=== PATIENT | female | born 1990 | race Caucasian/White ===

== ENCOUNTER 2017-10-04 17:53 | Emergency (ER) | payer OTHER ==
[2017-10-04 18:00] VITALS: BP 109/51; PULSE 76; TEMP 97.9; BMI 32.9
--- NOTE | 2017-10-04 18:00 | PDOC ---
Rapid Medical Evaluation Time Seen by Provider: 10/04/17 17:54 Medical Evaluation: Allergies Allergy/AdvReac Type Severity Reaction Status Date / Time No Known Allergies Allergy Verified 10/04/17 17:54 12 17:54 I have performed a brief in-person evaluation of this patient. The patient presents with a chief complaint of: 31 weeks w/ R pelvic pain radiating to leg x 3 days. No vag bleed, dysuria, n/v/f/c. Continues to have movement Pertinent physical exam findings:Stable I have ordered the following: Nothing The patient will proceed to L&D for further evaluation. 10/04/17 18:00
== END 2017-10-04 20:25 | disposition home or self-care (01) ==
LOC: JER 17:53
DX: O26.893 Other specified pregnancy related conditions, third trimester (principal); Z3A.31 31 weeks gestation of pregnancy
CPT/HCPCS: 93971-TC; 99281-25

== ENCOUNTER 2017-12-01 15:47 | Inpatient (IN) | payer OTHER ==
[2017-12-01 17:02] VITALS: BMI 34.9
[2017-12-01 17:52] LABS: BASO % 0.3 % (0-2.0); EOS % 0.5 % (0-4.5); HEMATOCRIT 33.3 % (32.4-45.2); MCH 29.3 pg (25.7-33.7); MCHC 33.1 g/dl (32.0-36.0); MEAN CELL VOLUME 88.5 fl (80-96); MEAN PLT VOLUME 9.3 fl (7.5-11.1); MONO % 6.3 % (3.8-10.2); NEUT % 72.9 % (42.8-82.8); PLATELET COUNT 234 K/MM3 (134-434); RBC 3.76 M/mm3 (3.60-5.2); WHITE BLOOD COUNT 5.5 K/mm3 (4.0-10.0)
[2017-12-01] MEDS ORDERED: PROMETHAZINE HCL 25 MG/1 ML VIAL IVPUSH ONE (18:00)
[2017-12-01] MEDS ORDERED: BUTORPHANOL TARTRATE 1 MG/ML VIAL IVPUSH ONE (18:00)
[2017-12-01] MEDS ORDERED: DINOPROSTONE 10 MG VAGINAL SUPPOSITORY VG ONE (18:00)
--- NOTE | 2017-12-01 18:04 | HP ---
Past Medical History - Primary Care Physician PCP:: Antwon Galvez - Admission Chief Complaint: 40 weeks , GDM, LGA for cervidil induction History of Present Illness: 27 yo f ,40 weeks with hx of GDM, lga admitted for cervidil induction, cx 3 2 cm 50 vx -2 mi, fhr cat 1, irregular contraction, cervidil explained rba discussed History Source: Patient Limitations to Obtaining History: Language Barrier - Past Medical History ...: 4 ...Para: 1 ...Term: 1 ...: 0 ...Spon : 1 ...Induced : 1 ...Multiple Gestation: 0 ...LMP: 03/01/17 ... Weeks Gestation by Dates: 39.1 ...EDC by Dates: 12/06/17 ...EDC by Sono: 12/01/17 - Past Surgical History Hx Myomectomy: No Hx Transabdominal Cerclage: No - Smoking History Smoking history: Never smoked Have you smoked in the past 12 months: No - Alcohol/Substance Use Hx Alcohol Use: No - Social History Usual Living Arrangement: Yes: With Spouse History of Recent Travel: No Home Medications - Allergies Allergies/Adverse Reactions: Allergies Allergy/AdvReac Type Severity Reaction Status Date / Time No Known Allergies Allergy Verified 12/01/17 16:22 - Home Medications Home Medications: Ambulatory Orders Ferrous Sulfate [Feosol] 325 mg PO BID 12/01/17 Vit 108/Iron/Folic AC [ One Tablet] 1 each PO DAILY 12/01/17 Review of Systems - Review of Systems Constitutional: reports: No Symptoms Eyes: reports: No Symptoms HENT: reports: No Symptoms Neck: reports: No Symptoms Cardiovascular: reports: No Symptoms Respiratory: reports: No Symptoms Gastrointestinal: reports: No Symptoms Genitourinary: reports: No Symptoms Breasts: reports: No Symptoms Reported Musculoskeletal: reports: No Symptoms Integumentary: reports: No Symptoms Neurological: reports: No Symptoms Endocrine: reports: No Symptoms Hematology/Lymphatic: reports: No Symptoms Psychiatric: reports: No Symptoms Physical Exam - Maternity Vital Signs: Vital Signs Temperature 98.2 F 12/01/17 16:00 Pulse Rate 84 12/01/17 16:00 Respiratory Rate 20 12/01/17 16:00 Blood Pressure 110/62 12/01/17 16:00 O2 Sat by Pulse Oximetry (%) - Abdominal Exam/OB Fundal Height: 140 Number of Fetuses: Single Presentation: Vertex Contractions: Yes Regularity: Irregular Intensity: Unaware Monitor Mode: External Heart Rate Location: RLQ Accelerations: Uniform Decelerations: None - Vaginal Exam/OB Vaginal Bleediing: No Speculum Exam: No Dilatation (cm): 2 cm Effacement (%): 50 Amniotic Membrane Status: Intact Presentation: Vertex/Position Station: -2 - Physical Exam Edema: Yes Edema: LLE: Trace, RLE: Trace ...Motor Strength: WNL Psychiatric: Yes: WNL Hemorrhage Risk Assessment - Risk Factors Medium Risk Factors: Yes: None High Risk Factors: Yes: None Risk Score: 1 Risk Level: Medium Risk Problem List - Problems (1) 40 weeks gestation of Code(s): Z3A.40 - 40 WEEKS GESTATION OF (2) Gestational diabetes Code(s): O24.419 - GESTATIONAL DIABETES MELLITUS IN , UNSP CONTROL Qualifiers: Gestational diabetes mellitus control: diet-controlled (3) Gestational diabetes Code(s): O24.419 - GESTATIONAL DIABETES MELLITUS IN , UNSP CONTROL (4) Large for gestational age fetus Code(s): [id number] - Assessment/Plan plan admit for cervidil induction, rbchucho discussed FHM,
--- NOTE | 2017-12-01 18:12 | PN ---
Progress Note (short form) - Note Progress Note: fhr cat 1, cervidil inserted 6 pm Problem List - Problems (1) 40 weeks gestation of Code(s): Z3A.40 - 40 WEEKS GESTATION OF (2) Gestational diabetes Code(s): O24.419 - GESTATIONAL DIABETES MELLITUS IN , UNSP CONTROL Qualifiers: Gestational diabetes mellitus control: diet-controlled (3) Gestational diabetes Code(s): O24.419 - GESTATIONAL DIABETES MELLITUS IN , UNSP CONTROL (4) Large for gestational age fetus Code(s): [id number] -
[2017-12-01 18:16] LABS: ANION GAP 8 (8-16); BLOOD UREA NITROGEN 5 mg/dL (7-18); CALCIUM 7.9 mg/dL (8.5-10.1); CHLORIDE 107 mmol/L (98-107); CO2 23 mmol/L (21-32); CREATININE 0.5 mg/dL (0.55-1.02); GLUCOSE,RANDOM 110 mg/dL (74-106); POTASSIUM 3.9 mmol/L (3.5-5.1); SODIUM 138 mmol/L (136-145)
[2017-12-01 18:25] LABS: INR 0.96 (0.82-1.09); PROTHROMBIN TIME (PATIENT) 10.9 SEC (9.98-11.88)
[2017-12-01 18:28] LABS: ACTIVATED PTT 32.3 SECONDS (26.9-34.4)
[2017-12-01] MEDS ORDERED: LACTATED RINGERS SOLUTION 1,000 ML/1,000 ML INFUS.BAG IV ONE ×2 (19:51→23:00)
[2017-12-01] MEDS ORDERED: ELECTROLYTE-148 SOLN 1,000 ML IV ONE (19:54)
[2017-12-01] MEDS ORDERED: BUTORPHANOL TARTRATE 1 MG/ML VIAL ONE ×2 (20:30)
--- NOTE | 2017-12-01 20:30 | PN ---
Progress Note (short form) - Note Progress Note: short frequent contraction , cx 2 cm 70 vx -2 , cervidil lowered in the vagina , wants pain meds Problem List - Problems (1) 40 weeks gestation of Code(s): Z3A.40 - 40 WEEKS GESTATION OF (2) Gestational diabetes Code(s): O24.419 - GESTATIONAL DIABETES MELLITUS IN , UNSP CONTROL Qualifiers: Gestational diabetes mellitus control: diet-controlled (3) Gestational diabetes Code(s): O24.419 - GESTATIONAL DIABETES MELLITUS IN , UNSP CONTROL (4) Large for gestational age fetus Code(s): ESR9932 -
[2017-12-01] MEDS ORDERED: PROMETHAZINE HCL 25 MG/1 ML VIAL ONE (20:31)
--- NOTE | 2017-12-01 21:48 | PN ---
Progress Note (short form) - Note Progress Note: cx 4 cm 70 vx -2 mi, fhr cat 1. regular short contraction Problem List - Problems (1) 40 weeks gestation of Code(s): Z3A.40 - 40 WEEKS GESTATION OF (2) Gestational diabetes Code(s): O24.419 - GESTATIONAL DIABETES MELLITUS IN , UNSP CONTROL Qualifiers: Gestational diabetes mellitus control: diet-controlled (3) Gestational diabetes Code(s): O24.419 - GESTATIONAL DIABETES MELLITUS IN , UNSP CONTROL (4) Large for gestational age fetus Code(s): [id number] -
[2017-12-02] MEDS ORDERED: PROMETHAZINE HCL 25 MG/1 ML VIAL IVPUSH ONE (01:35)
[2017-12-02] MEDS ORDERED: BUTORPHANOL TARTRATE 1 MG/ML VIAL IVPUSH ONE (01:35)
[2017-12-02] MEDS ORDERED: BUTORPHANOL TARTRATE 1 MG/ML VIAL ONE ×2 (01:45)
[2017-12-02] MEDS ORDERED: PROMETHAZINE HCL 25 MG/1 ML VIAL ONE (01:45)
[2017-12-02] MEDS ORDERED: OXYTOCIN 20 UNITS in 0.9% NS 20 UNIT/1,000 ML INFUS.BAG IV ONE ×2 (03:08→05:33)
[2017-12-02] MEDS ORDERED: oxyCODONE HCL 5 MG TABLET PO PRN (04:50)
[2017-12-02] MEDS ORDERED: WITCH HAZEL 50% (TUCKS) 40 PAD/JAR PAD TP PRN (04:50)
[2017-12-02] MEDS ORDERED: METHYLERGONOVINE MALEATE 0.2 MG/1 ML AMP IM PRN (04:50)
[2017-12-02] MEDS ORDERED: BISACODYL 10 MG SUPP.RECT RC PRN (04:50)
[2017-12-02] MEDS ORDERED: BENZOCAINE 28 GM HEMORRHOIDAL OINTMENT TP PRN (04:50)
[2017-12-02] MEDS ORDERED: BENZOCAINE 20% 57 GM BOTTLE TP PRN (04:50)
[2017-12-02] MEDS ORDERED: D5W-LR W/ 20 UNITS OXYTOCIN 20 UNIT/1,000 ML INFUS.BAG IV SCH (05:00)
[2017-12-02 05:06] LABS: ARTERIAL BLOOD GAS BASE EXCESS -5.3 meq/l (-2-2)
[2017-12-02 05:11] LABS: VENOUS PC02 39.6 mmHg (38-52); VENOUS PH 7.34 (7.32-7.42); VENOUS PO2 36.5 mmHg (28-48)
[2017-12-02 05:12] LABS: ARTERIAL BLOOD GAS pH 7.22 (7.35-7.45)
[2017-12-02 05:13] LABS: ARTERIAL BLD GAS O2 SATURATION 25.1 % (90-98.9)
[2017-12-02] MEDS: FERROUS SO4 325 MG TABLET (FP) PO SCH ×2 (08:20→17:06)
[2017-12-02] MEDS: PRENATAL VITAMINS W/ FOLIC ACID TABLET (FP) PO SCH (10:00)
[2017-12-02] MEDS: IBUPROFEN 600 MG TABLET (FP) PO PRN ×2 (12:27→19:13)
[2017-12-02] MEDS: ACETAMINOPHEN 325 MG TABLET (FP) PO PRN ×2 (12:28→19:14)
[2017-12-03] MEDS: ACETAMINOPHEN 325 MG TABLET (FP) PO PRN ×3 (02:46→17:45)
[2017-12-03] MEDS: IBUPROFEN 600 MG TABLET (FP) PO PRN ×3 (02:47→17:46)
[2017-12-03 06:07] LABS: HBsAG SCREEN Negative (Negative)
[2017-12-03 06:41] LABS: BASO % 0.5 % (0-2.0); EOS % 0.5 % (0-4.5); HEMATOCRIT 28.9 % (32.4-45.2); HEMOGLOBIN 9.5 GM/dL (10.7-15.3); LYMPH % 28.8 % (8-40); MCH 29.2 pg (25.7-33.7); MCHC 32.8 g/dl (32.0-36.0); MONO % 5.7 % (3.8-10.2); NEUT % 64.5 % (42.8-82.8); PLATELET COUNT 236 K/MM3 (134-434); RBC 3.25 M/mm3 (3.60-5.2); RDW 16.4 % (11.6-15.6); WHITE BLOOD COUNT 7.4 K/mm3 (4.0-10.0)
--- NOTE | 2017-12-03 07:12 | PN ---
Post Progress Note Post Day: 1 Type of Delivery: Vital Signs: Vital Signs Temperature 98.3 F 12/02/17 22:00 Pulse Rate 83 12/02/17 22:00 Respiratory Rate 18 12/02/17 22:00 Blood Pressure 115/78 12/02/17 22:00 O2 Sat by Pulse Oximetry (%) Breast Exam: Yes: Soft Uterus: Yes: Fundus Firm Abdomen/GI: Yes: Abdomen soft Lochia: Yes: Rubra Lochia, amount: Small Extremities: Yes: Calves non-tender Perineum: Yes: Intact Activity: Ambulating - Labs Labs: CBC WBC 7.4 K/mm3 (4.0-10.0) D 12/03/17 06:25 RBC 3.25 M/mm3 (3.60-5.2) L 12/03/17 06:25 Hgb 9.5 GM/dL (10.7-15.3) L D 12/03/17 06:25 Hct 28.9 % (32.4-45.2) L 12/03/17 06:25 MCV 89.0 fl (80-96) 12/03/17 06:25 MCH 29.2 pg (25.7-33.7) 12/03/17 06:25 MCHC 32.8 g/dl (32.0-36.0) 12/03/17 06:25 RDW 16.4 % (11.6-15.6) H 12/03/17 06:25 Plt Count 236 K/MM3 (134-434) 12/03/17 06:25 MPV 9.0 fl (7.5-11.1) 12/03/17 06:25 Neutrophils % 64.5 % (42.8-82.8) 12/03/17 06:25 Lymphocytes % 28.8 % (8-40) D 12/03/17 06:25 Monocytes % 5.7 % (3.8-10.2) 12/03/17 06:25 Eosinophils % 0.5 % (0-4.5) 12/03/17 06:25 Basophils % 0.5 % (0-2.0) 12/03/17 06:25 Assessment/Plan oob reg diet continue care
[2017-12-03] MEDS: FERROUS SO4 325 MG TABLET (FP) PO SCH ×2 (08:11→17:43)
[2017-12-03] MEDS: PRENATAL VITAMINS W/ FOLIC ACID TABLET (FP) PO SCH (09:15)
[2017-12-03] MEDS ORDERED: SENNOSIDES/DOCUSATE COMBO (SENNA PLUS) TABLET (UD) PO PRN (22:00)
[2017-12-04] MEDS: IBUPROFEN 600 MG TABLET (FP) PO PRN ×2 (00:12→07:46)
[2017-12-04] MEDS: ACETAMINOPHEN 325 MG TABLET (FP) PO PRN ×2 (00:13→07:46)
[2017-12-04] MEDS: FERROUS SO4 325 MG TABLET (FP) PO SCH (07:46)
[2017-12-04 08:20] VITALS: BP 110/57; PULSE 67; TEMP 97.8
--- NOTE | 2017-12-04 08:53 | PN ---
Post Progress Note - Subjective Subjective: Pt feeling well. Ambulating. Voiding. Normal lochia. Bottle feeding. Desires BTL for contraception Post Day: 2 Type of Delivery: Vital Signs: Vital Signs Temperature 97.8 F 12/04/17 08:19 Pulse Rate 67 12/04/17 08:19 Respiratory Rate 20 12/04/17 08:19 Blood Pressure 110/57 12/04/17 08:19 O2 Sat by Pulse Oximetry (%) Breast Exam: Yes: Soft Uterus: Yes: Fundus Firm Abdomen/GI: Yes: Abdomen soft Lochia, amount: Small Extremities: Yes: Calves non-tender Activity: Ambulating - Labs Labs: CBC WBC 7.4 K/mm3 (4.0-10.0) D 12/03/17 06:25 RBC 3.25 M/mm3 (3.60-5.2) L 12/03/17 06:25 Hgb 9.5 GM/dL (10.7-15.3) L D 12/03/17 06:25 Hct 28.9 % (32.4-45.2) L 12/03/17 06:25 MCV 89.0 fl (80-96) 12/03/17 06:25 MCH 29.2 pg (25.7-33.7) 12/03/17 06:25 MCHC 32.8 g/dl (32.0-36.0) 12/03/17 06:25 RDW 16.4 % (11.6-15.6) H 12/03/17 06:25 Plt Count 236 K/MM3 (134-434) 12/03/17 06:25 MPV 9.0 fl (7.5-11.1) 12/03/17 06:25 Neutrophils % 64.5 % (42.8-82.8) 12/03/17 06:25 Lymphocytes % 28.8 % (8-40) D 12/03/17 06:25 Monocytes % 5.7 % (3.8-10.2) 12/03/17 06:25 Eosinophils % 0.5 % (0-4.5) 12/03/17 06:25 Basophils % 0.5 % (0-2.0) 12/03/17 06:25 Problem List - Problems (1) care following vaginal delivery Code(s): Z39.2 - ENCOUNTER FOR ROUTINE FOLLOW-UP Assessment/Plan Patient PPD#2 s/p stable for discharge home problem list states DVT; spoke to pt, no h/o DVT, no h/o anticoagulation. pelvic rest x 6 weeks desires btl; to f/u to schedule Dr. Magdaleno
--- NOTE | 2017-12-04 09:00 | DS ---
Physical Exam-[employer] Vital Signs: Vital Signs Temperature 97.8 F 12/04/17 08:19 Pulse Rate 67 12/04/17 08:19 Respiratory Rate 20 12/04/17 08:19 Blood Pressure 110/57 12/04/17 08:19 O2 Sat by Pulse Oximetry (%) Constitutional: Yes: Well Nourished, No Distress, Calm Eyes: Yes: WNL, Conjunctiva Clear, EOM Intact HENT: Yes: WNL, Atraumatic, Normocephalic Neck: Yes: WNL, Supple, Trachea Midline Cardiovascular: Yes: WNL, Regular Rate and Rhythm Respiratory: Yes: WNL, Regular, CTA Bilaterally Gastrointestinal: Yes: WNL ...Rectal Exam: Yes: WNL Renal/: Yes: WNL Breast(s): Yes: WNL Musculoskeletal: Yes: WNL Extremities: Yes: WNL Integumentary: Yes: WNL Neurological: Yes: WNL, Alert, Oriented ...Motor Strength: WNL Psychiatric: Yes: WNL, Alert, Oriented Labs: CBC, BMP 12/03/17 06:25 12/01/17 16:45 Delivery - Delivery Type of Anesthesia: Local Episiotomy/Laceration: Midline EBL (cc): 400 Delivery, Single - Stages of Labor Date 1st Stage Initiatied: 12/01/17 Time 1st Stage Initiated: 21:40 Date 2nd Stage Initiated: 12/02/17 Time 2nd Stage Initiated: 04:10 Date of Delivery: 12/02/17 Time of Delivery: 04:26 Time Placenta Delivered: 04:35 - 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 of 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 Present: No Infant Gender: Female Weight: 9 lb 2 oz Position: Left, OA Total Hours ROM (Hrs/Mins): 25min - 1 Minute Total Score: 8 5 Minutes Total Score: 9 - [place] Feeding Plan Initial Plan: Elected not to breastfeed exclusively throughout hospitalization Discharge Summary Reason For Visit: CERVIDIL INDUCTION Current Active Problems 40 weeks gestation of (Acute) Gestational diabetes (Acute) Gestational diabetes (Acute) Large for gestational age fetus (Acute) care following vaginal delivery (Acute) Procedures: Principal: spontaneous vaginal delivery Condition: Good - Instructions Diet, Activity, Other Instructions: return to clinic in 4-6 weeks. call [facility] for appointment. [phone] Physical activity Resume your normal everyday activity as tolerated no heavy lifting or exercise until seen by your surgeon. You may walk unlimited charline of and climb stairs. You may resume driving the car when you feel safe and comfortable behind the wheel. No sexual activity as instructed. Wound care If you have a bandage, leave it on, and keep dry for 48-72 hours. After that time discard the outer bandage. If they are tapes on the skin under the out of bandage leave them in place. They will peel off in the next 7 to 10 days. Do Not Peel them off. You may shower the day after surgery. If there are tapes present on the skin, you may shower over them. Diet There are no dietary restrictions. Eat healthy, high-fiber foods. Drink 6 to 8 glasses of liquid each day. This will assist in keeping your bowels are regular. Pain management You may take Tylenol or acetaminophen or Ibuprofen (for example, Motrin, Advil etc.) from my pain prescription medication is ordered should be taken as prescribed for moderate to severe pain. Call MD for any of the following: Severe pain not relieved by medication Fever of 101 or higher Excessive bleeding or drainage on dressing Inability to urinate Disposition: HOME - Home Medications Comprehensive Discharge Medication List: Ambulatory Orders Ferrous Sulfate [Feosol] 325 mg PO BID 12/01/17 Vit 108/Iron/Folic AC [ One Tablet] 1 each PO DAILY 12/01/17
[2017-12-04] MEDS: PRENATAL VITAMINS W/ FOLIC ACID TABLET (FP) PO SCH (09:31)
== END 2017-12-04 12:15 | disposition home or self-care (01) | DRG 560 ==
LOC: JLDR 15:47 → J3W 12-02 06:15
PROVIDERS: ADMIT Obstetrics & Gynecology; ATTEND Obstetrics & Gynecology
PROC: 3E0P7VZ Introduction of Hormone into Female Reproductive, Via Natural or Artificial Opening (ICD-10-PCS; 2017-12-01)
PROC: 10E0XZZ Delivery of Products of Conception, External Approach (ICD-10-PCS; principal; 2017-12-02)
PROC: 0W8NXZZ Division of Female Perineum, External Approach (ICD-10-PCS; 2017-12-02)
DX: O36.63X0 Maternal care for excessive fetal growth, third trimester, not applicable or unspecified (principal); O24.429 Gestational diabetes mellitus in childbirth, unspecified control; Z3A.40 40 weeks gestation of pregnancy; Z37.0 Single live birth
CPT/HCPCS: 36415; 36600; 59409; 80048; 82803; 82962; 85025; 85610; 85730; 86593; 86850; 86900; 86901; 87340

== ENCOUNTER 2023-07-12 06:25 | Inpatient (IN) | payer OTHER ==
[2023-07-12 06:51] VITALS: BMI 34.4
[2023-07-12] MEDS ORDERED: CITRIC ACID/SODIUM CITRATE 30 ML UNIT-DOSE CUP PO ONE (07:00)
[2023-07-12] MEDS ORDERED: ELECTROLYTE-148 SOLN 1,000 ML IV SCH (07:00)
[2023-07-12] MEDS ORDERED: ELECTROLYTE-148 SOLN 500 ML IV SCH (07:00)
[2023-07-12] MEDS ORDERED: OXYTOCIN 30 UNITS in 0.9% NS 30 UNIT/500 ML INFUS.BAG IVPB ONE (07:53)
[2023-07-12] MEDS ORDERED: ONDANSETRON 4 MG/2 ML VIAL ONE (07:54)
[2023-07-12] MEDS ORDERED: ceFAZolin SODIUM 1 GM VIAL ONE (07:54)
[2023-07-12] MEDS ORDERED: METOCLOPRAMIDE HCL INJECTION 10 MG/2 ML VIAL ONE (07:54)
[2023-07-12] MEDS ORDERED: DEXAMETHASONE SOD PHOSPHATE 4 MG/1 ML VIAL ONE (07:54)
[2023-07-12] MEDS ORDERED: PHENYLEPHRINE HCL 10 MG/1 ML SINGLE DOSE VIAL ONE (07:54)
[2023-07-12] MEDS ORDERED: morphine SULFATE/PF 1 MG/2 ML (2cc Syringe - QUVA) ONE (07:54)
[2023-07-12] MEDS ORDERED: FENTANYL CITRATE/PF 50 MCG/ML VIAL ONE (07:54)
[2023-07-12] MEDS ORDERED: morphine SULFATE/PF 1 MG/2 ML (2cc Syringe - QUVA) IT ONE (08:31)
[2023-07-12] MEDS ORDERED: METHYLERGONOVINE MALEATE 0.2 MG/1 ML AMP IM ONE (08:50)
[2023-07-12] MEDS ORDERED: KETOROLAC TROMETHAMINE 30 MG/1 ML VIAL ONE (09:05)
[2023-07-12] MEDS ORDERED: METHYLERGONOVINE MALEATE 0.2 MG/1 ML AMP IM PRN (09:24)
[2023-07-12] MEDS ORDERED: IBUPROFEN 800 MG/8 ML IJ IVPB PRN (09:26)
[2023-07-12] MEDS ORDERED: CEFAZOLIN SODIUM 2 GM in DEXTROSE 5%-WATER 100 ML IVPB SCH (09:30)
[2023-07-12] MEDS ORDERED: OXYTOCIN 20 UNITS in 0.9% NS 20 UNIT/1,000 ML INFUS.BAG IV SCH (09:30)
[2023-07-12 09:38] LABS: CORD BASE EXCESS -5.2 mmol/L (0-2); CORD HCO3 20.6 mmHg (20-29); CORD PCO2 41.2 mmHg (30-78); CORD pH 7.317 (7.14-7.44)
[2023-07-12] MEDS ORDERED: ONDANSETRON 4 MG/2 ML VIAL IVPUSH PRN (09:39)
[2023-07-12 09:41] LABS: CORD HCO3 21.6 mmHg (20-29); CORD PCO2 55.5 mmHg (30-78); CORD pH 7.209 (7.14-7.44)
[2023-07-12] MEDS ORDERED: OXYTOCIN 20 UNITS in 0.9% NS 20 UNIT/1,000 ML INFUS.BAG IV ONE (10:25)
[2023-07-12] MEDS: CEFAZOLIN SODIUM 2 GM in DEXTROSE 5%-WATER 100 ML IVPB SCH (17:07)
[2023-07-12] MEDS ORDERED: oxyCODONE HCL 5 MG TABLET PO PRN (21:25)
[2023-07-13] MEDS: CEFAZOLIN SODIUM 2 GM in DEXTROSE 5%-WATER 100 ML IVPB SCH ×2 (00:32→09:14)
[2023-07-13] MEDS: IBUPROFEN 600 MG TABLET (FP) PO PRN ×2 (05:54→20:11)
[2023-07-13] MEDS: ACETAMINOPHEN 325 MG TABLET (FP) PO PRN ×2 (07:05→21:29)
[2023-07-13] MEDS: SIMETHICONE 80 MG TAB.CHEW (FP) PO PRN ×4 (07:06→20:11)
[2023-07-13] MEDS ORDERED: BISACODYL 10 MG SUPP.RECT RC PRN (09:25)
[2023-07-13 09:28] LABS: BASO % 0.2 % (0-2.0); EOS % 0.1 % (0-4.5); HEMATOCRIT 30.1 % (32.4-45.2); HEMOGLOBIN 9.9 GM/dL (10.7-15.3); LYMPH % 9.3 % (8-40); MCH 29.8 pg (25.7-33.7); MCHC 32.9 g/dl (32.0-36.0); MEAN CELL VOLUME 90.4 fl (80-96); MEAN PLT VOLUME 8.9 fl (7.5-11.1); MONO % 5.1 % (3.8-10.2); NEUT % 85.3 % (42.8-82.8); PLATELET COUNT 219 10^3/uL (134-434); RBC 3.32 M/mm3 (3.60-5.2); RDW 15.7 % (11.6-15.6); WHITE BLOOD COUNT 9.1 K/mm3 (4.0-10.0)
[2023-07-13] MEDS: ENOXAPARIN NA (PORCINE) 40 MG/0.4 ML DISP.SYRIN SQ SCH (10:37)
[2023-07-13] MEDS: oxyCODONE HCL 5 MG TABLET PO PRN ×2 (11:38→15:58)
[2023-07-14] MEDS: IBUPROFEN 600 MG TABLET (FP) PO PRN ×3 (05:50→20:08)
[2023-07-14] MEDS: SIMETHICONE 80 MG TAB.CHEW (FP) PO PRN ×2 (05:50→20:08)
[2023-07-14] MEDS: ACETAMINOPHEN 325 MG TABLET (FP) PO PRN ×3 (09:03→21:35)
[2023-07-14] MEDS: ENOXAPARIN NA (PORCINE) 40 MG/0.4 ML DISP.SYRIN SQ SCH (09:04)
[2023-07-14] MEDS ORDERED: SENNOSIDES/DOCUSATE COMBO (SENNA PLUS) TABLET (UD) PO PRN (20:05)
[2023-07-15] MEDS: IBUPROFEN 600 MG TABLET (FP) PO PRN (08:30)
[2023-07-15 08:34] LABS: BASO % 0.4 % (0-2.0); EOS % 1.7 % (0-4.5); HEMATOCRIT 29.3 % (32.4-45.2); LYMPH % 21.9 % (8-40); MCH 30.4 pg (25.7-33.7); MCHC 34.1 g/dl (32.0-36.0); MEAN CELL VOLUME 89.3 fl (80-96); MEAN PLT VOLUME 8.5 fl (7.5-11.1); MONO % 5.3 % (3.8-10.2); NEUT % 70.7 % (42.8-82.8); PLATELET COUNT 237 10^3/uL (134-434); RBC 3.28 M/mm3 (3.60-5.2); RDW 16.2 % (11.6-15.6); WHITE BLOOD COUNT 5.1 K/mm3 (4.0-10.0)
[2023-07-15] MEDS: ENOXAPARIN NA (PORCINE) 40 MG/0.4 ML DISP.SYRIN SQ SCH (09:57)
[2023-07-15 10:18] VITALS: BP 116/69; PULSE 91; RESP 16; TEMP 98.7
== END 2023-07-15 12:20 | disposition home or self-care (01) | DRG 540 ==
LOC: JLDR 06:25 → J3W 10:45
PROVIDERS: ADMIT Obstetrics & Gynecology; ATTEND Obstetrics & Gynecology
PROC: 10D00Z1 Extraction of Products of Conception, Low, Open Approach (ICD-10-PCS; principal; 2023-07-12)
PROC: 0UB70ZZ Excision of Bilateral Fallopian Tubes, Open Approach (ICD-10-PCS; 2023-07-12)
DX: O48.0 Post-term pregnancy (principal); O36.63X0 Maternal care for excessive fetal growth, third trimester, not applicable or unspecified; O99.213 Obesity complicating pregnancy, third trimester; O24.429 Gestational diabetes mellitus in childbirth, unspecified control; Z30.2 Encounter for sterilization; Z3A.40 40 weeks gestation of pregnancy; Z37.0 Single live birth
CPT/HCPCS: 36415; 36600; 82803; 82962; 85025; 94010